=== PATIENT | female | born 1980 | race Two or more races ===

== ENCOUNTER 2023-03-04 13:23 | Emergency (ER) | payer OTHER ==
[~2023-03-04] VITALS: Ht 154.9 cm; Wt 100.0 kg
[2023-03-04 15:48] VITALS: TEMP 97.8; O2SAT 97
[2023-03-04] MEDS ORDERED: HYDROcodone-ACET 10/325MG TAB PO ONE (16:00)
[2023-03-04 16:01] LABS: Urine Bacteria FEW /hpf (None Seen); Urine Blood Negative /uL (Negative); Urine Clarity Clear (Clear); Urine Color Yellow (Yellow); Urine Mucus FEW (None Seen); Urine Protein, UAD TRACE (Negative); Urine Specific Gravity 1.036 (1.001-1.035); Urine Urobilinogen Normal (Negative); Urine WBC 1 /hpf (0 - 5); Urine pH 5.5 (5.0-8.0)
[2023-03-04] MEDS ORDERED: PERCOT PO (17:40)
[2023-03-04] MEDS ORDERED: HYDROmorphone HCL 2 MG/ML VL/or syr IM ONE (17:45)
[2023-03-04 17:53] VITALS: BP 134/84; PULSE 97; RESP 18
== END 2023-03-04 18:11 | disposition home or self-care (01) ==
LOC: ER 13:23
DX: M54.16 Radiculopathy, lumbar region (principal); M54.42 Lumbago with sciatica, left side; M54.41 Lumbago with sciatica, right side; R51.9 Headache, unspecified; Z98.890 Other specified postprocedural states; Z88.8 Allergy status to other drugs, medicaments and biological substances
CPT/HCPCS: 70450; 72100; 81001; 96372; 99285; J1170